=== PATIENT | male | born 1990 | race African-American/Black ===

== ENCOUNTER 2023-04-29 20:36 | Emergency (ER) | payer MEDICAID ==
[~2023-04-29] VITALS: Ht 177.8 cm; Wt 91.0 kg
[2023-04-29 20:40] VITALS: TEMP 98.3; O2SAT 100
[2023-04-29] MEDS ORDERED: PHENYTOIN SODIUM EXTENDED 100MG CAPSULE PO ONE (21:15)
[2023-04-29] MEDS ORDERED: LORAZEPAM 1MG TABLET PO NR (21:30)
[2023-04-29 22:04] LABS: BASOPHILS % 0.3 % (0.0-2.0); EOSINOPHILS % 0.5 % (0.0-5.0); HEMATOCRIT. 47.5 % (42.0-52.0); HEMOGLOBIN. 16.2 g/dL (14.0-18.0); LYMPHOCYTES % 7.8 % (20.0-50.0); MEAN CORPUSCULAR HEMOGLOBIN 30.7 pg (28.0-32.0); MEAN CORPUSCULAR VOLUME 90.1 fL (80.0-94.0); MONOCYTES % 7.1 % (2.0-8.0); NEUTROPHILS % 84.3 % (40.0-76.0); PLATELET 275 x1000/uL (130-400); RED BLOOD CELL COUNT 5.28 mill/uL (4.7-6.1); RED CELL DISTRIBUTION WIDTH 14.7 % (11.6-14.6); WHITE BLOOD COUNT 10.1 x1000/uL (4.5-11.0)
[2023-04-29 22:24] LABS: ALANINE AMINOTRANSFERASE 24 IU/L (10-49); ALBUMIN 4.1 g/dL (3.2-4.8); ASPARTATE AMINOTRANSFERASE 18 IU/L (<34); BILIRUBIN TOTAL 0.2 mg/dL (0.1-1.0); CALCIUM 9.3 mg/dL (8.7-10.4); CARBON DIOXIDE 26 mEq/L (21-32); CHLORIDE 107 mEq/L (98-107); CREATININE 1.1 mg/dL (0.6-1.3); GLUCOSE 106 mg/dL (70-105); PHENYTOIN 3.5 ug/mL (10-20); POTASSIUM 3.7 mEq/L (3.5-5.1); PROTEIN TOTAL 7.3 g/dL (6.0-8.3); SODIUM 140 mEq/L (136-145); UREA NITROGEN BLOOD 11 mg/dL (9-23)
[2023-04-30 00:11] VITALS: BP 134/86; PULSE 107; RESP 14
== END 2023-04-30 00:11 | disposition home or self-care (01) ==
LOC: ER 20:36
DX: R56.9 Unspecified convulsions (principal); I99.9 Unspecified disorder of circulatory system
CPT/HCPCS: 36415; 80053; 80185; 85025; 93005; 99284